=== PATIENT | female | born 1975 | race Caucasian/White ===

== ENCOUNTER 2024-07-06 18:53 | Emergency (ER) | payer OTHER ==
[2024-07-06] MEDS: Iopamidol 755 Mg/ML 100 ML Bottle IVPUSH ONE (19:28)
[2024-07-06 19:36] LABS: BASOPHILS PERCENT AUTO 2.5 % (0.0-1.0); EOSINOPHILS PERCENT AUTO 3.4 % (1.0-3.0); HEMATOCRIT 32.8 % (37.0-47.0); HEMOGLOBIN 11.3 g/dL (12.0-16.0); MEAN CORPUSCULAR HEMOGLOBIN 36.9 pg (27.0-34.0); MEAN CORPUSCULAR HGB CONC 34.5 g/dL (33.0-35.0); MEAN CORPUSCULAR VOLUME 107.2 fL (80-100); MONOCYTES PERCENT AUTO 10.5 % (2-8); NEUTROPHILS PERCENT AUTO 62.6 % (42.2-75.2); PLATELET COUNT,PLT 161 10^3/uL (150-450); RED BLOOD CELL COUNT 3.06 10^6/uL (4.2-5.4); WHITE BLOOD CELL COUNT,WBC 3.5 10^3/uL (5.0-10.0)
[2024-07-06] MEDS: Ketorolac 30 MG/ML SDV IVPUSH ONE (19:42)
[2024-07-06 19:50] LABS: CALCIUM 9.3 mg/dL (8.5-10.1); CREATININE 1.23 mg/dL (0.55-1.02); EST CRCL DRUG DOSING (CG) 49.24 mL/min; POTASSIUM,K 3.8 mmol/L (3.5-5.1)
[2024-07-06 19:55] LABS: ANION GAP 11.8 mEq/L (7-13)
== END 2024-07-06 22:13 | disposition home or self-care (01) ==
LOC: DL.ED 18:53
DX: M54.2 Cervicalgia (principal); I10 Essential (primary) hypertension; Z88.0 Allergy status to penicillin
CPT/HCPCS: 36415; 70498; 80048; 85025; 85651; 86140; 96374; 99283; 99284-25; J1885; Q9967